=== PATIENT | male | born 2005 | race Caucasian/White ===

== ENCOUNTER 2024-12-01 12:47 | Emergency (ER) | payer SELFPAY ==
[2024-12-01 12:55] VITALS: BP 126/78; PULSE 89; RESP 16; TEMP 36.8; O2SAT 98; BMI 24.4
[2024-12-01 14:00] LABS: Hematocrit 45.1 % (37-53); Hemoglobin 15.40 g/dL (13.2-15.6); Mean Corpuscular HGB Conc 34.1 g/dL (30-55); Mean Corpuscular Hemoglobin 28.3 pg (27-33); Mean Corpuscular Volume 82.8 fl (82-101); Nucleated Red Blood Cells % 0 %; Platelet Count 277 10^3/cmm (157-399); Red Blood Count 5.45 10^6/uL (3.85-5.65); White Blood Count 7.84 10^3/uL (4.5-13.0)
--- NOTE | 2024-12-01 14:07 | ED_ITS ---
HPI - GI Bleed 2 General: Chief complaint: GI Bleed Stated complaint: bloody stool Time Seen by Provider: 12/01/24 13:52 Source: patient Mode of arrival: ambulatory Limitations: no limitations History of Present Illness: 19-year-old male who presents to the ED with complaint of dark red bloody diarrhea, onset 3 days ago. Patient states that he had several episodes of diarrhea on Sunday with small amount of dark red blood. He continued to have diarrhea Sunday and Sunday but without any blood. Today he has had about 2 episodes of diarrhea with blood in it. Reports associated crampy lower abdominal pain, nausea, and 2 episodes of vomiting on Sunday and Sunday but has not had any further episodes of vomiting and abdominal pain is much improved. Denies any fevers, chills, or hematemesis. Denies any recent contacts with anyone sick, recent travels, or consuming spoiled food. He states over the past 24 hours stools have significantly decreased and he has only had 1-2 episodes over the past 24 hours. States he never had any feverss/body aches. No other complaints at this time. complaint: blood streaked stool Onset (ago): day(s) (3) Pain Consistency: intermittent Severity: mild Relieving factors: bowel movement Exacerbating factors: none Associated symptoms: Reports abdominal pain (has had some intermittent pains a few days ago but none now) and nausea; Denies chills, fever(s), headache(s), malaise, other bleeding, rash or vomiting Treatments Prior to Arrival: none Related Data Home Medications ?Medication ?Instructions ?Recorded ?Confirmed No Known Home Medications 07/10/1908/22 Allergies Allergy/AdvReac Type Severity Reaction Status Date / Time No Known Allergies Allergy Unverified 12/01/24 12:58 Review of Systems 2 Const: Denies: fever(s), chills, body aches, fatigue or malaise GI: Reports: abdominal pain (has had some intermittent pains a few days ago but none now), nausea, GI cramping and hematochezia; Denies: vomiting or hematemesis : Denies: difficulty urinating or dysuria Musc: Denies: neck pain, back pain, extremity pain, extremity swelling or joint swelling Skin/Breast: Denies: rash Neuro: Denies: headache(s), numbness in extremities, weakness in extremities, sensory changes or dizziness PFSH ED 2 PFSH: Social History Smoking and tobacco/nicotine status: never used tobacco/nicotine Second hand smoke exposure: Yes Physical Exam 2 Const: COMMON NORMALS: no acute distress, average body habitus, patient oriented x3, no limitations, healthy appearing, alert and well nourished HENMT: COMMON NORMALS: normocephalic HEAD & SCALP: normocephalic Resp: COMMON NORMALS: normal respiratory effort and clear to auscultation bilaterally AUSCULTATION: clear to auscultation bilaterally Cardio: COMMON NORMALS: regular rate and regular rhythm RATE: regular rate RHYTHM: regular rhythm GI: COMMON NORMALS: Normal to inspection, nondistended, normoactive bowel sounds present, Soft to palpation, non-tender, No hepatosplenomegaly present and no masses INSPECTION: Yes normal to inspection AUSCULTATION: Yes normoactive bowel sounds PALPATION: Yes Soft to palpation, Yes Tenderness to palpation present (GI) Details: LLQ and RLQ, No Guarding due to palpation present (GI), No Rigid due to palpation and Yes No hepatosplenomegaly present : COMMON NORMALS: Yes no CVA tenderness BLADDER/KIDNEY EXAM: Yes no CVA tenderness Back/Pelvis: COMMON NORMALS: no CVA tenderness Extremity: GENERAL: Yes normal exam except as noted Neuro: COMMON NORMALS: patient oriented x3 and gait normal S ENSORIUM/ORIENTATION: Yes alert Course 2 Vital Signs: Vital signs: Vital Signs Temperature 98.3 F 12/01/24 12:55 Pulse Rate 89 12/01/24 12:55 Respiratory Rate 16 12/01/24 12:55 Blood Pressure 126/78 12/01/24 12:55 Pulse Oximetry 98 12/01/24 12:55 Oxygen Delivery Me thod Room Air 12/01/24 12:55 MDM - GI Bleed Medical Decision Making Patient clinically appears in absolutely no acute distress. His vital signs are stable. Blood work showing a normal white count. H/H stable. He has normal renal functions. Abdomen is nontender/nonsurgical. Patient states symptoms have significantly improved over the past 24 hours. At this time I feel it is appropriate to continue conservative outpatient therapy. I do not see any indication for CT imaging, antibiotics, or other interventions at this time. Return to ED precautions discussed. Medical Records I reviewed the patient's medical records. Lab Data I reviewed the patient's lab results. 12/01/24 13:45 12/01/24 13:45 Laboratory Results WBC 7.84 10^3/uL (4.5-13.0) 12/01/24 13:45 RBC 5.45 10^6/uL (3.85-5.65) 12/01/24 13:45 Hgb 15.40 g/dL (13.2-15.6) 12/01/24 13:45 Hct 45.1 % (37-53) 12/01/24 13:45 MCV 82.8 fl (82-101) 12/01/24 13:45 MCH 28.3 pg (27-33) 12/01/24 13:45 MCHC 34.1 g/dL (30-55) 12/01/24 13:45 RDW 12.3 % (12.1-15.1) 12/01/24 13:45 Plt Count 277 10^3/cmm (157-399) 12/01/24 13:45 MPV 8.9 fL (7.4-10.4) 12/01/24 13:45 Neut % (Auto) 62.2 % 12/01/24 13:45 Lymph % (Auto) 22.8 % 12/01/24 13:45 [place] % (Auto) 13.5 % 12/01/24 13:45 Eos % (Auto) 0.9 % 12/01/24 13:45 Baso % (Auto) 0.3 % 12/01/24 13:45 Neut # (Auto) 4.88 10^3/uL (1.8-8.0) 12/01/24 13:45 Lymph # (Auto) 1.8 10^3/uL (1.5-6.5) 12/01/24 13:45 [place] # (Auto) 1.1 10^3/uL (0.2-0.9) H 12/01/24 13:45 Eos # (Auto) 0.1 10^3/uL (0.0-0.8) 12/01/24 13:45 Baso # (Auto) 0.0 10^3/uL (0.0-0.1) 12/01/24 13:45 Nucleated RBC % (auto) 0 % 12/01/24 13:45 Nucleated RBCs # 0.0 /100WBC 12/01/24 13:45 PT 13.80 SECONDS (12.1-14.9) 12/01/24 13:45 INR 0.99 (0.8-1.2) 12/01/24 13:45 Sodium 135 mmol/L (136-145) L 12/01/24 13:45 Potassium 3.5 mmol/L (3.5-5.1) 12/01/24 13:45 Chloride 99 mmol/L (98-107) 12/01/24 13:45 Carbon Dioxide 24 mmol/L (22-29) 12/01/24 13:45 Anion Gap 15.5 (5-19) 12/01/24 13:45 BUN 8 mg/dL (6-20) 12/01/24 13:45 Creatinine 0.9 mg/dL (0.7-1.2) 12/01/24 13:45 GFR Calculation 107.6 mL/min (90-130) 12/01/24 13:45 Glucose 86 mg/dL (65-115) 12/01/24 13:45 Calculated Osmolality 278 mOsm/kg (285-295) L 12/01/24 13:45 Calcium 9.5 mg/dL (8.5-10.5) 12/01/24 13:45 Total Bilirubin 0.5 mg/dL (0.15-1.2) 12/01/24 13:45 AST 17 U/L (0-40) 12/01/24 13:45 ALT 10 U/L (0-41) 12/01/24 13:45 Alkaline Phosphatase 63 U/L (40-130) 12/01/24 13:45 Total Protein 8.1 g/dL (6.6-8.7) 12/01/24 13:45 Albumin 4.2 g/dL (3.5-5.2) 12/01/24 13:45 Globulin 3.9 g/dL (1.3-4.6) 12/01/24 13:45 No radiology studies performed this visit Discharge Plan Discharge Patient Disposition: Home Clinical Impression: Diarrhea Qualifiers: Diarrhea type: presumed infectious Qualified Code(s): R19.7 - Diarrhea, unspecified Condition: Stable Prescriptions: No Action No Known Home Medications Discharge Orders: Discharge ED (Routine); Ordered 12/01/24 Ordered By: Inez Kelly Patient Instructions: Diarrhea - Adult, Acute Diarrhea (ED), Patient Portal & Astr[facility] Instructions Activity Restrictions/Additional Instructions: As we discussed, you may return to the emergency department for onset of severe abdominal pain, fevers, worsening bloody stools, generally feeling worse or unwell, or any other concerns you may have. Print Language: Danish Coding Level of Care Code ED Transcription Coordinator for Nasrin Nelson
[2024-12-01 14:16] LABS: INR 0.99 (0.8-1.2); Prothrombin Time 13.80 SECONDS (12.1-14.9)
[2024-12-01 14:17] LABS: Alanine Aminotransferase 10 U/L (0-41); Albumin Level 4.2 g/dL (3.5-5.2); Alkaline Phosphatase 63 U/L (40-130); Anion Gap 15.5 (5-19); Aspartate Amino Transferase 17 U/L (0-40); Blood Urea Nitrogen 8 mg/dL (6-20); Calcium 9.5 mg/dL (8.5-10.5); Carbon Dioxide 24 mmol/L (22-29); Chloride 99 mmol/L (98-107); Creatinine Clr Calc Pharmacy 142.4659; Globulin 3.9 g/dL (1.3-4.6); Glucose 86 mg/dL (65-115); Osmolality Calculated 278 mOsm/kg (285-295); Potassium 3.5 mmol/L (3.5-5.1); Sodium 135 mmol/L (136-145); Total Protein 8.1 g/dL (6.6-8.7)
[2024-12-01 14:44] VITALS: BP 127/79; PULSE 83; O2SAT 97
== END 2024-12-01 14:45 | disposition home or self-care (01) ==
PROVIDERS: Emergency Medicine; Emergency Provider Physician Assistant
DX: R19.7 Diarrhea, unspecified (principal)
CPT/HCPCS: 36415; 80053; 85025; 85610; 99283